=== PATIENT | female | born 1990 | race African-American/Black ===

== ENCOUNTER 2021-07-11 10:08 | Emergency (ER) | payer OTHER ==
[2021-07-11 10:35] LABS: BILIRUBIN NEGATIVE (NEGATIVE); BLOOD NEGATIVE Ery/uL (NEGATIVE); CLARITY CLEAR (CLEAR); COLOR YELLOW (YELLOW); GLUCOSE (U) NORMAL (NORMAL); LEUKOCYTES NEGATIVE Leu/uL (NEGATIVE); NITRITE NEGATIVE (NEGATIVE); PROTEIN NEGATIVE (NEGATIVE); SPECIFIC GRAVITY 1.025 (1.001-1.030); UROBILINOGEN 0.2 mg/dL (0.2-1.0)
[2021-07-11 10:46] LABS: BASOPHIL 0.2 % (0-2); EOSINOPHIL 0.9 % (0-5); HCT 36.5 % (37.0-47.0); HGB 12.4 g/dl (12.5-16.0); LYMPHOCYTE 37.4 % (15-48); MCH 30.8 pg (25.0-31.0); MCV 90.6 fL (78.0-100.0); MONOCYTE 9.9 % (0-12); MPV 10.8 fL (6.0-9.5); NEUTROPHIL 51.4 % (41-80); NRBC 0; PLT 223 K/uL (150-400); RBC 4.03 M/uL (4.20-5.40); RDW 12.8 % (11.5-14.0); WBC 4.6 K/uL (4.0-10.5)
[2021-07-11 11:14] LABS: ALBUMIN 3.7 g/dL (3.4-5.0); BILIRUBIN - TOTAL 0.5 mg/dL (0.2-1.0); BUN/CREAT RATIO (CALC) 12.2 RATIO; CREATININE 0.82 mg/dL (0.51-0.95); GLOBULIN (CALCULATION) 3.8 g/dL; POTASSIUM 3.4 mmol/L (3.5-5.1); TOTAL PROTEIN 7.5 g/dL (6.4-8.2)
[2021-07-11] MEDS ORDERED: NAPROXEN500 MG PO (13:35)
== END 2021-07-11 13:58 | disposition home or self-care (01) ==
LOC: FER 10:08
PROVIDERS: Internal Medicine
DX: D25.9 Leiomyoma of uterus, unspecified (principal); M54.50 Low back pain, unspecified; F17.210 Nicotine dependence, cigarettes, uncomplicated
CPT/HCPCS: 36415; 72131; 76830; 80053; 81003; 85025